=== PATIENT | female | born 1990 | race American Indian/Alaskan Native ===

== ENCOUNTER 2017-07-14 17:01 | Inpatient (IN) | payer MEDICAID, OTHER ==
--- NOTE | 2017-07-14 17:59 | C.PDOC ---
History Of Present Illness 26 year old female with prior psych Hx presents to the ED for evaluation of paranoia, depression and auditory hallucinations. Patient states she feels anxious, hearing voices that tell her to hurt herself which has been occurring for approximately 1 week. Patient denies substance abuse or any other physical complaints at the time. Time Seen by Provider: 07/14/17 17:26 Chief Complaint (Nursing): Psychiatric Evaluation History Per: Patient History/Exam Limitations: no limitations Onset/Duration Of Symptoms: Days Current Symptoms Are (Timing): Still Present Modifying Factor(s): None Severity: Mild Associated Symptoms: Depression, Paranoia, Suicidal Thoughts Recent travel outside of the [place]: No Additional History Per: Patient Past Medical History Reviewed: Historical Data, Nursing Documentation, Vital Signs Vital Signs: Last Vital Signs Temp 98 F 07/16/17 06:40 Pulse 86 07/16/17 16:08 Resp 18 07/16/17 06:40 BP 119/76 07/16/17 16:08 Pulse Ox 99 07/14/17 19:26 - Medical History PMH: Anxiety, Depression, Schizophrenia Denies: Diabetes, Hepatitis, HIV, HTN, Seizures, Sexually Transmitted Disease Surgical History: No Surg Hx Family History: States: Unknown Family Hx - Social History Hx Tobacco Use: No Hx Alcohol Use: No Hx Substance Use: No - Immunization History Hx Influenza Vaccination: No Review Of Systems Constitutional: Negative for: Fever, Chills Cardiovascular: Negative for: Chest Pain Respiratory: Negative for: Cough, Shortness of Breath Gastrointestinal: Negative for: Nausea, Vomiting, Abdominal Pain Skin: Negative for: Rash Neurological: Negative for: Weakness, Numbness Psych: Positive for: Depression, Suicidal ideation Physical Exam - Physical Exam Appears: Non-toxic, Other (Bizarre affect) Skin: Normal Color, Warm, Dry Head: Atraumatic, Normacephalic Nose: No Discharge Oral Mucosa: Moist Neck: Normal ROM, Supple Chest: Symmetrical Cardiovascular: Rhythm Regular, No Murmur Respiratory: Normal Breath Sounds, No Rales, No Rhonchi, No Wheezing Gastrointestinal/Abdominal: Soft, No Tenderness Extremity: Normal ROM, No Pedal Edema, No Calf Tenderness, No Swelling Neurological/Psych: Oriented x3, Normal Speech, Normal Cognition Gait: Steady ED Course And Treatment - Laboratory Results Result Diagrams: 07/14/17 18:08 07/14/17 18:08 O2 Sat by Pulse Oximetry: 98 (On RA) Pulse Ox Interpretation: Normal Medical Decision Making Medical Decision Making: Plan: * Blood work ordered * UA ordered Assessment: Paranoia, auditory hallucinations. Pt is medically cleared for crisis and for admission. Pt will be admitted for schizophrenia/depression to psych under the services of Dr. Moreno Disposition Discussed With Dr.: Raymond Moreno Doctor Will See Patient In The: Hospital Counseled Patient/Family Regarding: Studies Performed, Diagnosis - Disposition Disposition: HOSPITALIZED Disposition Time: 18:52 Condition: FAIR - Clinical Impression Clinical Impression: Schizoaffective disorder, Depression - Scribe Statement The provider has reviewed the documentation as recorded by the Scribe Matty Ruiz All medical record entries made by the Scribe were at my direction and personally dictated by me. I have reviewed the chart and agree that the record accurately reflects my personal performance of the history, physical exam, medical decision making, and the department course for this patient. I have also personally directed, reviewed, and agree with the discharge instructions and disposition.
[2017-07-14 18:15] LABS: BASO # 0.1 K/uL (0.0-0.2); EOS # 0.1 K/uL (0.0-0.7); EOS % 1.4 % (0.0-4.0); NRBC % 0.1 % (0.0-2.0); WHITE BLOOD COUNT 6.8 K/uL (4.8-10.8)
[2017-07-14 18:22] LABS: BASO % 0.8 % (0.0-2.0); HEMATOCRIT 33.9 % (34.0-47.0); LYMPH # 2.9 K/uL (1.0-4.3); LYMPH % 42.2 % (20.0-40.0); MEAN CELL VOLUME 90.9 fL (81.0-99.0); MEAN CORPUSCULAR HEMOGLOBIN 29.9 pg (27.0-31.0); MEAN CORPUSCULAR HGB CONC 32.9 g/dL (33.0-37.0); MEAN PLATELET VOLUME 9.2 fL (7.2-11.7); MONO # 0.5 K/uL (0.0-0.8); RED CELL DISTRIBUTION WIDTH 12.8 % (11.5-14.5)
[2017-07-14 18:25] LABS: URINE BILIRUBIN NEGATIVE (NEGATIVE); URINE BLOOD NEGATIVE (NEGATIVE); URINE COLOR Yellow (YELLOW); URINE GLUCOSE (UA) NORMAL (Normal); URINE KETONE NEGATIVE (NEGATIVE); URINE LEUKOCYTE ESTERASE NEG Leu/uL (Negative); URINE PROTEIN NEGATIVE (NEGATIVE); WBC URINE 1 /hpf (0-5)
[2017-07-14 18:28] LABS: ALB/GLOB RATIO 1.3 (1.0-2.1); ALCOHOL SERUM < 10 mg/dl (0-10); ALKALINE PHOSPHATASE 73 U/L (38-126); ALT/SGPT 28 U/L (9-52); AST/SGOT 15 U/L (14-36); BILIRUBIN,TOTAL 0.3 mg/dL (0.2-1.3); BLOOD UREA NITROGEN 12 mg/dL (7-17); CARBON DIOXIDE 25 mmol/L (22-30); CHLORIDE 104 mmol/L (98-107); GFR AFRICAN-AMERICAN > 60; GLUCOSE,RANDOM 97 mg/dL (65-105); POTASSIUM 3.9 mmol/L (3.6-5.2); SODIUM 137 mmol/L (132-148)
--- NOTE | 2017-07-14 19:59 | PCM.BM ---
<Yuki Mei - Last Filed: 07/14/17 20:00> Treatment Plan Problems - Problems identified on initial assessmt depression Date Initiated: 07/14/17 Time Initiated: 20:45 Assessment reference: NA Status: Active Auditory hallucination Date Initiated: 07/14/17 Time Initiated: 20:45 Assessment reference: NA Status: Active Treatment assets and liabiliti Patient Assests: cooperative, ADL independent, negotiates basic needs Patient Liabilities: auditory impairment <Jonnathan Melendez - Last Filed: 07/17/17 10:18> - Diagnosis (1) Schizoaffective disorder Status: Acute Interventions: 07/17/17 10:18 * Assess/adjust medications daily and /or as needed * See patient on an individual basis 7x/week to assess status of hallucinations * Discuss risks, benefits, side effects and alternatives of medications * <Karena Weiner - Last Filed: 07/17/17 11:07> Family Contact Family involvement: Famliy/SO not involved - Goals for Treatment Patient goals for treatment: "I want to go a intermediate." Discharge/Continuing Care - Education Needs Education Needs: Patient Medication, Patient Coping Skills - Discharge Discharge Criteria: Tolerates medication w/o severe side effects, Reduction of target symptoms Discharge to:: Home - Treatment Team Participation Discussed with Family/SO: No Was Patient/Family/SO present at Treatment Team Meeting: Yes
[2017-07-14] MEDS ORDERED: Pneumococcal 23-Valent Vaccine IM ONE (23:09)
--- NOTE | 2017-07-15 11:21 | PCM.PSYCH ---
Initial Psychiatric Evaluation - Initial Psychiatric Evaluation Type of Admission: Voluntary Legal Status: Capacity Chief Complaint (in patient's own words): I'm feeling depressed and suicidal" History of Present Illness and Precipitating Events: The pt is seen, chart reviewed, case discussed with staff Pt is a 26y/o female with a history of Schizoaffective Disorder , came to the ED for intrusive suicidal thoughts, increasing paranoia, and persecutory delusions. Per ED charts: pt stated that she previously attended the partial hospitalization program through [facility], and recently learned of the by suicide of a friend she made there. Pt stated that in addition to learning of her friend's , she has been feeling increasingly paranoid, feels like people are "following me and want to hurt me." Pt stated that she is afraid that she may do something to harm herself due to worsening symptoms. Pt denied previous suicide attempts in the past. Pt denied H/I and A/V /T hallucinations, but has a history of auditory hallucinations in the past. Pt is not able to state the last time she experienced auditory hallucinations, but states the "medicine helps them stay away." Pt states that she has been diagnosed with schizoaffective disorder, and her last hospitalization was in [address] for similar symptoms. Pt reports that she attends a day-program at [facility] x4 days/week, where she receives therapy and medication management. Pt states she is prescribed and compliant with the following medications: Cogentin 1mg, Buspar 10mg, Celexa 20mg, Invega 234mg and 17mg injection. Pt states that she feels like the Celexa is not helping her, and would like to be switched to Wellbutrin as she feels that in the past this was more effective with depressive symptoms. Pt appears to have a flat affect and soft speech during the interview. Patient reports depressed and irritable mood, reports feelings of hopelessness and helplessness. She denies any AVH, however, she remained disorganized and appeared delusional. A list of the names and number of her social workers was collected during the interview and the pt has them written on paper. Past MHX: Anemia Past Psychiatric HX: Schizoaffective Disorder Past Family Psychiatric HX: Mother- schizophrenia Uncle-Schizophrenia Past Family Substance Abuse: Father received help for Marijuana use Current Medications: Active Medications Generic Name Dose Route Start Last Admin Trade Name Riki PRN Reason Stop Dose Admin Benztropine Mesylate 1 mg 07/15/17 10:00 07/15/17 10:44 Cogentin PO 1 mg DAILY MARIO Administration Buspirone HCl 10 mg 07/15/17 10:00 07/15/17 10:42 Buspar PO 10 mg BID MARIO Administration Citalopram Hydrobromide 20 mg 07/15/17 11:30 Celexa PO DAILY MARIO Ferrous Sulfate 325 mg 07/15/17 10:00 07/15/17 10:43 Feosol PO 325 mg DAILY MARIO Administration Pneumococcal Polyvalent Vaccine 0.5 ml 07/17/17 10:00 Pneumovax 23 Vaccine IM 07/17/17 10:01 .ONCE ONE Risperidone 1 mg 07/15/17 11:30 Risperdal Tab PO BID MARIO Trazodone HCl 50 mg 07/14/17 22:00 07/14/17 21:48 Desyrel PO 50 mg HS MARIO Administration Past Psychiatric History - Past Psychiatric History Previous Treatment History: Inpatient Pertinent Medical Hx (Current Medical&Sleep Prob, Allergies): Allergies Allergy/AdvReac Type Severity Reaction Status Date / Time haloperidol [From Haldol] Allergy SWELLING Verified 07/15/17 05:37 Benztropine [Benztropine Mesylate] 1 mg PO DAILY 07/23/16 busPIRone [Buspar] 10 mg PO DAILY 07/23/16 Citalopram [celeXA] 20 mg PO DAILY 07/14/17 Review of Systems - Review of Systems All systems: reviewed and no additional remarkable complaints except - Psychiatric Psychiatric: Anxiety, Behavioral Changes, Depression, Difficulty Concentrating, Irritability, Paranoia, Suicidal Ideation Mental Status Examination - Personal Presentation Personal Presentation: Looks stated age - Affect Affect: Flat, Depressed - Motor Activity Motor Activity: Calm, Psychomotor Retardation - Reliability in Providing Information Reliability in Providing Information: Poor, due to alteration in thoughts - Speech Speech: Disorganized - Mood Mood: Depressed, Anxious - Formal Thought Process Formal Thought Process: Delusions, Paranoia, Loosening of associations - Hallucinations/Delusions Delusions: Other (People Following her) - Obsessions/Compulsions Obsessions: No Compulsions: No - Cognitive Functions Orientation: Person, Place, Situation, Time Sensorium: Alert Attention/Concentration: Attentive Abstract Thinking: [place] Estimate of Intelligence: Below average Judgement: Imparied, as evidence by: Poor judgement, Imparied, as evidence by: Lack of insight into illness - Risk Risk: Suicidal, Diminished functioning DSM 5 DX - DSM 5 DSM 5 Diagnosis: Schizoaffective disorder depressed type - Recommended/Plan of Treatment Treatment Recommendations and Plan of Treatment: Schizoaffective disorder depressed type CBT Psychoeducation Supportive therapy, group therapy, individual therapy Risperdal 1 mg PO BID Celexa 20 mg PO Daily Buspar 10 mg PO BID Trazodone 50 mg by mouth daily at bedtime - Smoking Cessation Smoking Cessation Initiated: No
--- NOTE | 2017-07-16 09:43 | PCM.PYCHPN ---
Psychiatric Progress Note - Psychiatric Progress Note Patient seen today, length of contact: 17 Patient Chief Complaint: "I'm still depressed" Problems Identified/Issues Discussed: This patient was seen, chart reviewed, and case discussed with staff. Patient reports that her sleep was good. Pt states that her appetite has decreased. She states that she is still experiencing depressed mood, but it is not as bad yesterday. She reports feeling anxious. Pt reports feelings of paranoia and the thought that "people want her to hurt herself." Pt was counseled on those thoughts and comforted. She denies suicidal ideations and homicidal ideations. She denies any auditory or visual hallucination. Patient appears slightly disheveled and has a soft speech pattern. She is cooperative. Pt has been participating in groups and has been interacting with the staff and other patients. Patient is compliant with medications and denies any side effects. Symptoms are improving but need more time to stabilize. Support and psychoeducation given. Mental Status Examination - Cognitive Function Orientation: Person, Place, Situation, Time Attention: WNL Concentration: WNL Association: Loose Fund of Knowledge: Poor - Mood Mood: Depressed - Affect Affect: Flat, Depressed - Formal Thought Process Formal Thought Process: Delusions, Paranoia, Loosening of associations - Suicidal Ideation Suicidal Ideation: No - Homicidal Ideation Homicidal Ideation: No Goal/Treatment Plan - Goal/Treatment Plan Need for Continued Stay: Severe depression anxiety, Discharge may exacerbated symptoms, Severe functional impairment Progress Toward Problem(s) and Goals/Treatment Plan: Schizoaffective disorder depressed type CBT Psychoeducation Supportive therapy, group therapy, individual therapy Risperdal 1 mg PO BID Celexa 20 mg PO Daily Buspar 10 mg PO BID Trazodone 50 mg by mouth daily at bedtime
--- NOTE | 2017-07-17 09:58 | PCM.PYCHPN ---
Psychiatric Progress Note - Psychiatric Progress Note Patient seen today, length of contact: 16 min Patient Chief Complaint: "I'm still depressed" Problems Identified/Issues Discussed: This patient was seen, chart reviewed, and case discussed with staff. Patient appears more organized and less paranoid and less delusional. However, she remained isolated, confined and withdrawn. She still appears mildly paranoid and delusional and remained disheveled and unkempt. Pt reports feelings of paranoia and the thought that "people want her to hurt herself." She still reports depressed mood but reports improvement in her feelings of hopelessness and helplessness. She is taking medication and denies any side effects. Symptoms are improving but need more time to stabilize. Support and psychoeducation given. Medication Change: Yes (increase Celexa) Medical Record Reviewed: Yes Mental Status Examination - Cognitive Function Orientation: Person, Place, Situation, Time Attention: Poor Concentration: WNL Association: Loose Fund of Knowledge: Poor - Mood Mood: Depressed, Anxious - Affect Affect: Flat, Depressed - Speech Speech: Soft - Formal Thought Process Formal Thought Process: Delusions, Paranoia, Loosening of associations - Suicidal Ideation Suicidal Ideation: No - Homicidal Ideation Homicidal Ideation: No Goal/Treatment Plan - Goal/Treatment Plan Need for Continued Stay: Severe depression anxiety, Discharge may exacerbated symptoms, Severe functional impairment, Other Progress Toward Problem(s) and Goals/Treatment Plan: Schizoaffective disorder depressed type CBT Psychoeducation Supportive therapy, group therapy, individual therapy Risperdal 1 mg PO BID Celexa 40 mg PO Daily Buspar 10 mg PO BID Trazodone 50 mg by mouth daily at bedtime - Smoking Cessation Smoking Cessation Initiated: No
[2017-07-17] MEDS ORDERED: Influenza Vaccine 60 mcg/0.5 mL SYR (4YR UP) IM ONE (10:00)
[2017-07-17] MEDS ORDERED: Pneumococcal 23-Valent Vaccine IM ONE (10:00)
--- NOTE | 2017-07-18 09:27 | PCM.PYCHPN ---
Psychiatric Progress Note - Psychiatric Progress Note Patient seen today, length of contact: 16 min Patient Chief Complaint: "I'm still depressed" Problems Identified/Issues Discussed: This patient was seen, chart reviewed, and case discussed with staff. Patient appears more organized and less paranoid and less delusional. However, she remained isolated, confined and withdrawn. She still appears mildly paranoid and delusional and remained disheveled and unkempt. She still reports depressed mood but reports improvement in her feelings of hopelessness and helplessness. She is taking medication and denies any side effects. Symptoms are improving but need more time to stabilize. Support and psychoeducation given. Medication Change: Yes (increase risperdal) Medical Record Reviewed: Yes Mental Status Examination - Cognitive Function Orientation: Person, Place, Situation, Time Attention: Poor Concentration: WNL Association: Loose Fund of Knowledge: Poor - Mood Mood: Depressed, Anxious - Affect Affect: Flat, Depressed - Formal Thought Process Formal Thought Process: Delusions, Paranoia, Loosening of associations - Suicidal Ideation Suicidal Ideation: No - Homicidal Ideation Homicidal Ideation: No Goal/Treatment Plan - Goal/Treatment Plan Need for Continued Stay: Severe depression anxiety, Discharge may exacerbated symptoms, Severe functional impairment Progress Toward Problem(s) and Goals/Treatment Plan: Schizoaffective disorder depressed type CBT Psychoeducation Supportive therapy, group therapy, individual therapy Risperdal 1 mg PO Daily Risperdal 2 gm PO QHS Celexa 40 mg PO Daily Buspar 10 mg PO BID Trazodone 50 mg by mouth daily at bedtime - Smoking Cessation Smoking Cessation Initiated: No
--- NOTE | 2017-07-19 22:11 | PCM.PYCHPN ---
Psychiatric Progress Note - Psychiatric Progress Note Patient seen today, length of contact: 15 minutes Patient Chief Complaint: I am feeling better. Not hearing voices and my sleep is also better. Problems Identified/Issues Discussed: Patient seen, chart reviewed, case discussed with the staff. Issues related to illness and treatment were discussed with the patient and staff. Reported compliant with treatment with no adverse effects. Feeling much better,has better sleep,no hallucinations. Aftercare discussed with the patient. Patient was awake, alert and oriented 3. Denied any delusions, auditory or visual hallucinations, suicidal ideations or homicidal ideations at the time of evaluation.. Diagnostic Results: Reviewed DSM 5 Symptoms Update: Improving with treatment Medication Change: No Medical Record Reviewed: Yes Mental Status Examination - Cognitive Function Orientation: Person, Place, Situation, Time Memory: Intact Attention: WNL Concentration: WNL Association: WNL Fund of Knowledge: WN - Mood Mood: Depressed (Much less than before) - Affect Affect: Depressed - Speech Speech: Appropriate - Formal Thought Process Formal Thought Process: No Impairment - Suicidal Ideation Suicidal Ideation: No - Homicidal Ideation Homicidal Ideation: No Goal/Treatment Plan - Goal/Treatment Plan Need for Continued Stay: Remain at risks for inpatient hospitalization, Discharge may exacerbated symptoms, Severe functional impairment Progress Toward Problem(s) and Goals/Treatment Plan: Patient education Supportive therapy Continue treatment as before Patient will go to [facility] after discharge from the hospital for follow-up care. Estimated Date of D/C: 07/22/17 - Smoking Cessation Smoking Cessation Initiated: No
--- NOTE | 2017-07-20 11:09 | PCM.PYCHPN ---
Psychiatric Progress Note - Psychiatric Progress Note Patient seen today, length of contact: 15 minutes Patient Chief Complaint: "I'm still depressed" Problems Identified/Issues Discussed: This patient was seen, chart reviewed, and case discussed with staff. Patient appears more organized and less paranoid and less delusional. However, she remained isolated, confined and withdrawn. She still appears mildly paranoid and delusional and remained disheveled and unkempt. She still reports depressed mood but reports improvement in her feelings of hopelessness and helplessness. She is taking medication and denies any side effects. Symptoms are improving but need more time to stabilize. Support and psychoeducation given. Medication Change: No Medical Record Reviewed: Yes Mental Status Examination - Cognitive Function Orientation: Person, Place, Situation, Time Memory: Intact Attention: WNL Concentration: WNL Association: WNL Fund of Knowledge: WNL - Mood Mood: Depressed (Much less than before) - Affect Affect: Depressed - Speech Speech: Appropriate - Formal Thought Process Formal Thought Process: No Impairment - Suicidal Ideation Suicidal Ideation: No - Homicidal Ideation Homicidal Ideation: No Goal/Treatment Plan - Goal/Treatment Plan Need for Continued Stay: Remain at risks for inpatient hospitalization, Discharge may exacerbated symptoms, Severe functional impairment Progress Toward Problem(s) and Goals/Treatment Plan: Schizoaffective disorder depressed type CBT Psychoeducation Supportive therapy, group therapy, individual therapy Risperdal 1 mg PO Daily Risperdal 2 gm PO QHS Celexa 40 mg PO Daily Buspar 10 mg PO BID Trazodone 50 mg by mouth daily at bedtime Estimated Date of D/C: 07/22/17
--- NOTE | 2017-07-23 10:52 | PCM.PYCHPN ---
Psychiatric Progress Note - Psychiatric Progress Note Patient seen today, length of contact: 15 minutes Patient Chief Complaint: "I'm still depressed" Problems Identified/Issues Discussed: This patient was seen, chart reviewed, and case discussed with staff. Patient reports improvement in her mood and paranoia. She denies any hallucinations and any delusions. However, she remained isolated, confined and withdrawn. She reports improvement in her feelings of hopelessness and helplessness. She is taking medication and denies any side effects. Symptoms are improving but need more time to stabilize. Support and psychoeducation given. Medication Change: Yes (increase risperdal) Medical Record Reviewed: Yes Mental Status Examination - Cognitive Function Orientation: Person, Place, Situation, Time Memory: Intact Attention: WNL Concentration: WNL Association: WNL Fund of Knowledge: WNL - Mood Mood: Depressed (Much less than before) - Affect Affect: Depressed - Speech Speech: Appropriate - Formal Thought Process Formal Thought Process: No Impairment - Suicidal Ideation Suicidal Ideation: No - Homicidal Ideation Homicidal Ideation: No Goal/Treatment Plan - Goal/Treatment Plan Need for Continued Stay: Remain at risks for inpatient hospitalization Progress Toward Problem(s) and Goals/Treatment Plan: Schizoaffective disorder depressed type CBT Psychoeducation Supportive therapy, group therapy, individual therapy Risperdal 2 mg PO Daily Risperdal 2 gm PO QHS Celexa 40 mg PO Daily Buspar 10 mg PO BID Trazodone 50 mg by mouth daily at bedtime Estimated Date of D/C: 07/22/17 - Smoking Cessation Smoking Cessation Initiated: No
--- NOTE | 2017-07-24 10:18 | PCM.PYCHDC ---
Mental Status Examination - Mental Status Examination Orientation: Person, Place, Situation, Time Memory: Intact Mood: Neutral Affect: Constricted Speech: Soft Attention: WNL Concentration: WNL Association: WNL Fund of Knowledge: WNL Formal Thought Process: No Impairment Description of patient's judgement and insight: GOOD, FAIR Psychotic Thoughts and Behaviors: denies any AVH Suicidal Ideation: No Current Homicidal Ideation?: No Discharge Summary - Discharge Note Reason for Hospitalization: The pt is seen, chart reviewed, case discussed with staff Pt is a 26y/o female with a history of Schizoaffective Disorder , came to the ED for intrusive suicidal thoughts, increasing paranoia, and persecutory delusions. Per ED charts: pt stated that she previously attended the partial hospitalization program through [facility], and recently learned of the by suicide of a friend she made there. Pt stated that in addition to learning of her friend's , she has been feeling increasingly paranoid, feels like people are "following me and want to hurt me." Pt stated that she is afraid that she may do something to harm herself due to worsening symptoms. Pt denied previous suicide attempts in the past. Pt denied H/I and A/V /T hallucinations, but has a history of auditory hallucinations in the past. Pt is not able to state the last time she experienced auditory hallucinations, but states the "medicine helps them stay away." Pt states that she has been diagnosed with schizoaffective disorder, and her last hospitalization was in [address] for similar symptoms. Pt reports that she attends a day-program at [facility] x4 days/week, where she receives therapy and medication management. Pt states she is prescribed and compliant with the following medications: Cogentin 1mg, Buspar 10mg, Celexa 20mg, Invega 234mg and 17mg injection. Pt states that she feels like the Celexa is not helping her, and would like to be switched to Wellbutrin as she feels that in the past this was more effective with depressive symptoms. Pt appears to have a flat affect and soft speech during the interview. Patient reports depressed and irritable mood, reports feelings of hopelessness and helplessness. She denies any AVH, however, she remained disorganized and appeared delusional. Consultations:: List each consultation separately and include: 1. Reason for request. 2. Findings. 3. Follow-up Summary of Hospital Course include:: 1. Description of specific treatment plan utilized for patients during their course of treatmen. 2. Summarize the time- course for resolution of acute symptoms and/or regressed behaviors. 3. Describe issues identified and worked on during hospitalization. 4. Describe medication utilized. 5. Describe medical problems identified and treated. 6. Reassessment of suicide risk Summary of Hospital Course: During the course of her stay, patient (pt) started progressively improving and no longer remained irritable, depressed, and paranoid. Her mood and paranoia were improved and she started attending groups and meetings and started socializing. Patient denied any feelings of hopelessness, helplessness, and worthlessness, denied any problem with the sleep or appetite, denied suicidal ideation or homicidal ideation. Pt denied any auditory or visual hallucinations. Some changes were made in her current medications and patient was discharged on following medications. She tolerated these medications very well and denied any side effects. Pt is to return to [facility] in [place] on 07/27/17. - Diagnosis (1) Schizoaffective disorder Status: Acute - Final Diagnosis (DSM 5) Condition upon Discharge: FAIR DSM 5: Schizoaffective disorder depressed type Disposition: HOME/ ROUTINE Follow-up Treatment Plan: Education: Pt was educated and counseled about the risks and benefits of taking and not taking medications. Pt was educated and counseled about the risks of drinking and abusing drugs. Pt was educated and counseled to go to the ER or call 911 if pt develop suicidal ideation or homicidal ideation, worsening of symptoms or severe side effects of the meds. Prescriptions/Medication Reconciliation: Benztropine [Cogentin] 1 mg PO BID #60 tab busPIRone [Buspar] 10 mg PO BID #60 tab Citalopram [celEXA] 40 mg PO DAILY #30 tab Mirtazapine [Remeron] 30 mg PO HS #30 tab risperiDONE [RisperDAL Tab] 2 mg PO BID #60 tab traZODone [Desyrel] 50 mg PO HS #30 tab - Smoking Cessation Smoking Cessation Medication prescribed: No - Antipsychotic Medications Pt discharged on 2 or more routine antipsychotic medications: No
[2017-07-24 11:19] VITALS: BP 135/84; PULSE 106; RESP 18; TEMP 97; O2SAT 99
== END 2017-07-24 13:04 | disposition home or self-care (01) | DRG 430 ==
LOC: C.ER 17:01 → C.5E 18:52
PROC: GZHZZZZ Group Psychotherapy (ICD-10-PCS; principal; 2017-07-14)
PROC: GZ58ZZZ Individual Psychotherapy, Cognitive-Behavioral (ICD-10-PCS; 2017-07-14)
PROC: GZ56ZZZ Individual Psychotherapy, Supportive (ICD-10-PCS; 2017-07-14)
DX: F25.1 Schizoaffective disorder, depressive type (principal); F22 Delusional disorders; R45.851 Suicidal ideations; D64.9 Anemia, unspecified; Z81.8 Family history of other mental and behavioral disorders; Z79.899 Other long term (current) drug therapy; Z81.4 Family history of other substance abuse and dependence